=== PATIENT | male | born 1965 | race African-American/Black ===

== ENCOUNTER 2016-12-24 12:42 | Inpatient (IN) | payer MEDICAID ==
[~2016-12-24] VITALS: Ht 170.2 cm; Wt 72.4 kg
[2016-12-24 13:36] LABS: Basophils # (auto) 0 uL; Basophils % (auto) 0.5 % (0.0-2.0); DEFINITIVE VIEW TRANSMISSION; Eosinophils # (auto) 0.1 uL; Eosinophils % (auto) 1.4 % (0.0-7.0); Hematocrit 39.9 % (41.0-53.0); Hemoglobin 12.8 g/dL (13.5-17.5); Lymphocytes # (auto) 1.3 uL; Lymphocytes % (auto) 20.5 % (10.0-50.0); Mean Corpuscular Hemoglobin 26.5 pg (28.0-32.0); Mean Platelet Volume 6.6 fL (7.4-10.4); Monocytes # (auto) 0.6 uL; Neutrophils # (auto) 4.3 uL; Neutrophils % (auto) 67.6 % (37.0-80.0); Platelet Count (auto) 268 10^3/uL (140-450); Red Cell Distribution Width 17.5 % (11.6-16.0); White Blood Cell 6.4 10^3/uL (4.4-10.8)
[2016-12-24 14:00] LABS: Albumin 3.4 g/dL (3.4-5.0); Alkaline Phosphatase 79 U/L (45-117); Anion Gap 10 (5-15); Aspartate Aminotransferase 24 U/L (15-37); BUN/Creatinine Ratio 8.1; Bilirubin, Total 0.2 mg/dL (0.2-1.0); Blood Urea Nitrogen 9 mg/dL (7-18); Calcium 8.3 mg/dL (8.5-10.1); Carbon Dioxide 22 mmol/L (21-32); Chloride 106 mmol/L (98-107); GFR African American 90 mL/min; GFR Non-African American 74 mL/min; Glucose 90 mg/dL (74-106); Magnesium 2.2 mg/dL (1.6-2.6); Potassium 3.7 mmol/L (3.5-5.1); Sodium 138 mmol/L (136-145); Total Protein 7.4 g/dL (6.4-8.2)
[2016-12-24] MEDS ORDERED: SODIUM CHLORIDE 0.9% 1,000 ML IV ONE (16:03)
[2016-12-24] MEDS ORDERED: ACETAMINOPHEN 500 MG TAB PO PRN (16:15)
[2016-12-24] MEDS ORDERED: MORPHINE SULF INJ 2 MG/ML SYRINGE 1ML IV PRN ×2 (16:15)
[2016-12-24] MEDS ORDERED: LACTULOSE 20Gm/30ML SOLN PO PRN (16:15)
[2016-12-24] MEDS ORDERED: MORPHINE SULF INJ 2 MG/ML SYRINGE 1ML IV ONE (16:15)
[2016-12-24] MEDS ORDERED: LORazepam 0.5 MG TAB PO PRN (16:15)
[2016-12-24] MEDS ORDERED: ONDANSETRON HCL 4 MG/2 ML VIAL IV ONE (16:15)
[2016-12-24] MEDS ORDERED: ALBUTEROL SULF 2.5 MG/0.5ML(0.5%) NEB SOLN NEB PRN (16:15)
[2016-12-24] MEDS ORDERED: TEMAZEPAM 15 MG CAP PO PRN (16:15)
[2016-12-24] MEDS ORDERED: PROMETHAZINE HCL 25 MG/ML 1ML IV PRN (16:15)
[2016-12-24] MEDS ORDERED: NITROGLYCERIN 0.4 MG SL TAB SL PRN (16:15)
[2016-12-24] MEDS ORDERED: IOHEXOL 350 MG/ML 100ML IJ ONE (16:24)
[2016-12-24 16:58] LABS: Partial Thromboplastin Time 48.9 sec (22.64-33.71)
[2016-12-24] MEDS: SODIUM CHLORIDE 0.9% 1,000 ML IV SCH (16:58)
[2016-12-24 17:00] LABS: Prothrombin Time 26.3 sec (9.37-12.3)
[2016-12-24] MEDS ORDERED: ACETAMINOPHEN 325 MG TAB PO ONE (17:00)
[2016-12-24 17:01] LABS: INR 2.44 (0.9-1.15)
[2016-12-24] MEDS: LEVOFLOXACIN 500MG 100 ML IV SCH (17:03)
[2016-12-24 17:10] LABS: B-Type Natriuretic Peptide 11.79 pg/mL (0-100)
[2016-12-24 17:41] LABS: Temperature: 23.7 C (20.0-25.0)
[2016-12-24] MEDS: ALBUTEROL SULF 2.5 MG/0.5ML(0.5%) NEB SOLN NEB SCH (18:20)
[2016-12-24] MEDS: WARFARIN SODIUM 10 MG TAB PO ONE ×2 (19:30→20:53)
[2016-12-24 22:00] VITALS: BP 126/82
[2016-12-24] MEDS: METOPROLOL TARTRATE 25 MG TAB PO SCH (22:16)
[2016-12-24] MEDS: ATORVASTATIN 20 MG TAB PO SCH (22:16)
[2016-12-25] VITALS (7 sets, daily range): BP systolic 108–145; BP diastolic 59–103
[2016-12-25] MEDS: SODIUM CHLORIDE 0.9% 1,000 ML IV SCH ×3 (00:07→16:07)
[2016-12-25] MEDS: ALBUTEROL SULF 2.5 MG/0.5ML(0.5%) NEB SOLN NEB SCH ×4 (01:22→19:05)
[2016-12-25] MEDS ORDERED: PNEUMOCOCCAL VACC POLYS 25 MCG/0.5 ML VIAL IM ONE (05:45)
[2016-12-25] MEDS: HYDROcodone-ACET 5/325MG TAB PO PRN ×3 (06:11→22:15)
[2016-12-25 06:56] LABS: Basophils # (auto) 0 uL; Basophils % (auto) 0.6 % (0.0-2.0); DEFINITIVE VIEW TRANSMISSION; Eosinophils # (auto) 0.1 uL; Eosinophils % (auto) 1.2 % (0.0-7.0); Hemoglobin 12.2 g/dL (13.5-17.5); Lymphocytes # (auto) 1.3 uL; Lymphocytes % (auto) 19.7 % (10.0-50.0); Mean Corpuscular Hemoglobin 26.8 pg (28.0-32.0); Mean Corpuscular Hgb Conc. 32.2 g/dL (32.0-36.0); Mean Corpuscular Volume 83.3 fL (80.0-100.0); Mean Platelet Volume 6.9 fL (7.4-10.4); Monocytes % (auto) 14.2 % (0.0-12.0); Neutrophils # (auto) 4.4 uL; Neutrophils % (auto) 64.3 % (37.0-80.0); Platelet Count (auto) 251 10^3/uL (140-450); Red Cell Distribution Width 17.2 % (11.6-16.0); White Blood Cell 6.8 10^3/uL (4.4-10.8)
[2016-12-25 07:21] LABS: Anion Gap 8 (5-15); Blood Urea Nitrogen 11 mg/dL (7-18); Calcium 8.2 mg/dL (8.5-10.1); Carbon Dioxide 26 mmol/L (21-32); Chloride 106 mmol/L (98-107); Cholesterol 158 mg/dL (< 200); GFR African American 81 mL/min; GFR Non-African American 67 mL/min; Glucose 91 mg/dL (74-106); HDL Cholesterol 39 mg/dL (40-59); LDL Cholesterol 103 mg/dL (< 100); Potassium 4.1 mmol/L (3.5-5.1); Sodium 140 mmol/L (136-145); Triglycerides 110 mg/dL (< 150)
[2016-12-25 07:28] LABS: Partial Thromboplastin Time 59.5 sec (22.64-33.71)
[2016-12-25 07:35] LABS: INR 3.28 (0.9-1.15); Prothrombin Time 35.4 sec (9.37-12.3)
[2016-12-25] MEDS: METOPROLOL TARTRATE 25 MG TAB PO SCH ×2 (10:00→21:51)
[2016-12-25] MEDS: LEVOFLOXACIN 500MG 100 ML IV SCH (10:38)
[2016-12-25] MEDS ORDERED: WARFARIN SODIUM 10 MG TAB PO SCH ×2 (17:00)
[2016-12-25] MEDS: ATORVASTATIN 20 MG TAB PO SCH (21:50)
[2016-12-26] MEDS: ALBUTEROL SULF 2.5 MG/0.5ML(0.5%) NEB SOLN NEB SCH ×4 (00:15→20:22)
[2016-12-26] MEDS: SODIUM CHLORIDE 0.9% 1,000 ML IV SCH ×3 (02:07→15:33)
[2016-12-26 05:02] VITALS: BP 119/81
[2016-12-26] MEDS: HYDROcodone-ACET 5/325MG TAB PO PRN ×2 (09:03→21:17)
[2016-12-26 09:30] VITALS: BP 147/87
[2016-12-26] MEDS: METOPROLOL TARTRATE 25 MG TAB PO SCH ×2 (10:09→21:16)
[2016-12-26 10:37] LABS: Partial Thromboplastin Time 66.8 sec (22.64-33.71)
[2016-12-26 10:47] LABS: INR 4.46 (0.9-1.15); Prothrombin Time 48.2 sec (9.37-12.3)
[2016-12-26] MEDS: LEVOFLOXACIN 500MG 100 ML IV SCH (10:53)
[2016-12-26 13:30] VITALS: BP 157/98
[2016-12-26 15:26] LABS: Urine RBC None Seen /hpf (0 - 3)
[2016-12-26 15:50] LABS: Urine Bilirubin Negative (Negative); Urine Blood Negative /uL (Negative); Urine Color Yellow (Yellow); Urine Glucose Normal (Normal); Urine Ketone Negative (Negative); Urine Nitrite Negative (Negative); Urine Urobilinogen Normal (Negative); Urine pH 6.5 (5.0-8.0)
[2016-12-26 18:08] VITALS: BP 132/81
[2016-12-26] MEDS: ATORVASTATIN 20 MG TAB PO SCH (21:16)
[2016-12-26 21:58] VITALS: BP 139/83
[2016-12-27] MEDS: SODIUM CHLORIDE 0.9% 1,000 ML IV SCH (00:07)
[2016-12-27 05:20] VITALS: BP 136/78
[2016-12-27] MEDS: ALBUTEROL SULF 2.5 MG/0.5ML(0.5%) NEB SOLN NEB SCH ×2 (06:00)
[2016-12-27 06:31] LABS: Partial Thromboplastin Time 68.6 sec (22.64-33.71)
[2016-12-27 06:39] LABS: INR 3.68 (0.9-1.15); Prothrombin Time 39.7 sec (9.37-12.3)
[2016-12-27 09:10] VITALS: BP 133/77
== END 2016-12-27 10:43 | disposition home or self-care (01) | DRG 139 ==
LOC: ER 12:45 → TELE 12:46 → TELE-WESTW 19:45 → WEST WING 12-26 22:56
PROVIDERS: ADMIT Internal Medicine; ATTEND Internal Medicine
DX: J18.9 Pneumonia, unspecified organism (principal); E11.9 Type 2 diabetes mellitus without complications; E78.5 Hyperlipidemia, unspecified; Z86.711 Personal history of pulmonary embolism; Z23 Encounter for immunization; F17.210 Nicotine dependence, cigarettes, uncomplicated
CPT/HCPCS: 36415; 70450; 71020; 71275; 76705; 80048; 80053; 80061; 80307; 81001; 82550; 83735; 83880; 84443; 84484; 85025; 85379; 85610; 85652; 85730; 86141; 87040; 93005; 94640; 94761; 96374; 96375; J1956; J2405

== ENCOUNTER 2017-02-02 07:16 | Emergency (ER) | payer MEDICAID ==
[~2017-02-02] VITALS: Ht 170.2 cm; Wt 72.1 kg
[2017-02-02 07:29] VITALS: BP 151/82
== END 2017-02-02 08:31 | disposition home or self-care (01) ==
LOC: ER 07:16
DX: J02.9 Acute pharyngitis, unspecified (principal); F17.210 Nicotine dependence, cigarettes, uncomplicated

== ENCOUNTER 2018-03-26 14:19 | Observation (INO) | payer MEDICAID ==
[~2018-03-26] VITALS: Ht 172.7 cm; Wt 73.5 kg
[2018-03-26] MEDS ORDERED: IOHEXOL 300 MG/ML 100ML BOTTLE IJ ONE (16:59)
[2018-03-26] MEDS ORDERED: HYDROcodone-ACET 10/325MG TAB PO ONE (19:15)
[2018-03-26 19:59] VITALS: BP 98/75
== END 2018-03-26 21:28 | disposition home or self-care (01) | DRG 384 ==
LOC: ER 14:19 → OVERFLOW 14:20 → ER 21:28
PROVIDERS: ADMIT Emergency Medicine; ATTEND Emergency Medicine
DX: S20.212A Contusion of left front wall of thorax, initial encounter (principal); F17.210 Nicotine dependence, cigarettes, uncomplicated; V88.9XXA Person injured in other specified (collision)(noncollision) transport accidents involving nonmotor vehicle, nontraffic, initial encounter; Y93.89 Activity, other specified; Y92.89 Other specified places as the place of occurrence of the external cause; Y99.8 Other external cause status
CPT/HCPCS: 71045; 71101; 71260; 73030; 74177; 99285; G0378; Q9967

== ENCOUNTER 2019-11-18 03:33 | Emergency (ER) | payer MEDICAID ==
[~2019-11-18] VITALS: Ht 172.7 cm; Wt 68.0 kg
[2019-11-18 03:39] VITALS: BP 110/70
== END 2019-11-18 03:47 | disposition left against medical advice (07) ==
LOC: ER 03:33
DX: M79.641 Pain in right hand (principal); Z53.21 Procedure and treatment not carried out due to patient leaving prior to being seen by health care provider; W23.0XXA Caught, crushed, jammed, or pinched between moving objects, initial encounter; Y93.89 Activity, other specified; Y92.89 Other specified places as the place of occurrence of the external cause; Y99.8 Other external cause status

== ENCOUNTER 2020-05-03 17:40 | Emergency (ER) | payer MEDICAID ==
[~2020-05-03] VITALS: Ht 172.7 cm; Wt 68.0 kg
[2020-05-03 17:56] VITALS: BP 97/69
== END 2020-05-03 19:00 | disposition home or self-care (01) ==
LOC: ER 17:40
DX: S81.011A Laceration without foreign body, right knee, initial encounter (principal); M25.562 Pain in left knee; F17.210 Nicotine dependence, cigarettes, uncomplicated; W19.XXXA Unspecified fall, initial encounter; Y93.89 Activity, other specified; Y92.89 Other specified places as the place of occurrence of the external cause; Y99.8 Other external cause status
CPT/HCPCS: 12001

== ENCOUNTER 2020-12-09 12:24 | Emergency (ER) | payer MEDICAID ==
[~2020-12-09] VITALS: Ht 172.7 cm; Wt 70.3 kg
[2020-12-09 12:50] VITALS: BP 138/84
[2020-12-09 14:03] LABS: Hematocrit 41.2 % (41.0-53.0); Hemoglobin 13.5 g/dL (13.5-17.5); Mean Corpuscular Hemoglobin 27.8 pg (28.0-32.0); Mean Corpuscular Hgb Conc. 32.7 g/dL (32.0-36.0); Mean Corpuscular Volume 85.1 fL (80.0-100.0); Platelet Count (auto) 240 10^3/uL (140-450); Red Blood Cells 4.84 10^6/uL (4.5-5.90); Red Cell Distribution Width 16.4 % (11.8-14.3); White Blood Cell 5.7 10^3/uL (4.4-10.8)
[2020-12-09 14:14] LABS: Band Neutrophils % (manual) 0; Basophils % (manual) 0 (0.0-2.0); Blast Cells 0; Metamyelocytes % 0; Myelocytes % 0; Promyelocytes % 0; Reactive Lymphocytes 0
[2020-12-09 14:18] LABS: INR 2.87 (0.9-1.15)
[2020-12-09 14:20] LABS: Albumin 3.7 g/dL (3.4-5.0); Anion Gap 8 (5-15); Blood Urea Nitrogen 10 mg/dL (7-18); Calcium 8.8 mg/dL (8.5-10.1); Carbon Dioxide 23 mmol/L (21-32); Chloride 110 mmol/L (98-107); Glucose 95 mg/dL (74-106); Potassium 3.8 mmol/L (3.5-5.1); Sodium 141 mmol/L (136-145)
[2020-12-09 14:26] LABS: Alanine Aminotransferase 25 U/L (16-61); Alkaline Phosphatase 63 U/L (45-117); Aspartate Aminotransferase 23 U/L (15-37); BUN/Creatinine Ratio 9.7; Bilirubin, Total 0.4 mg/dL (0.2-1.0); GFR African American 96 mL/min; GFR Non-African American 80 mL/min; Total Protein 7.3 g/dL (6.4-8.2)
[2020-12-09 16:12] LABS: Eosinophils % (manual) 3 (0-7); Lymphocytes % (manual) 30 (10.0-50.0); Monocytes % (manual) 5 (0-12)
== END 2020-12-09 15:03 | disposition home or self-care (01) ==
LOC: ER 12:24
DX: R07.89 Other chest pain (principal); F17.210 Nicotine dependence, cigarettes, uncomplicated
CPT/HCPCS: 36415; 71045; 80053; 84484; 85007; 85027; 85610

== ENCOUNTER 2021-05-22 12:03 | Inpatient (IN) | payer MEDICAID ==
[~2021-05-22] VITALS: Ht 172.7 cm; Wt 69.9 kg
[2021-05-22] MEDS ORDERED: SODIUM CHLORIDE 0.9% 500 ML IV ONE (12:30)
[2021-05-22 13:23] LABS: Basophils # (auto) 0.1 10 ^3/uL (0-0.2); Eosinophils # (auto) 0.1 10 ^3/uL (0-0.8); Eosinophils % (auto) 1.9 % (0.0-7.0); Hematocrit 37.5 % (41.0-53.0); Hemoglobin 12.1 g/dL (13.5-17.5); Lymphocytes # (auto) 1.8 10 ^3/uL (0.4-5.4); Lymphocytes % (auto) 35.1 % (10.0-50.0); Mean Corpuscular Hemoglobin 27.3 pg (28.0-32.0); Mean Corpuscular Hgb Conc. 32.4 g/dL (32.0-36.0); Mean Corpuscular Volume 84.3 fL (80.0-100.0); Monocytes # (auto) 0.4 10 ^3/uL (0-1.3); Monocytes % (auto) 6.9 % (0.0-12.0); Neutrophils # (auto) 2.8 10 ^3/uL (1.6-8.6); Neutrophils % (auto) 55.1 % (37.0-80.0); Nucleated Red Blood Cells % 0.2 %; Red Blood Cells 4.45 10^6/uL (4.5-5.90); Red Cell Distribution Width 17.4 % (11.8-14.3); White Blood Cell 5.2 10^3/uL (4.4-10.8)
[2021-05-22 13:41] LABS: Albumin 3.1 g/dL (3.4-5.0); Anion Gap 7 (5-15); Blood Urea Nitrogen 13 mg/dL (7-18); Carbon Dioxide 22 mmol/L (21-32); Chloride 112 mmol/L (98-107); Glucose 87 mg/dL (74-106); Potassium 3.8 mmol/L (3.5-5.1); Sodium 141 mmol/L (136-145)
[2021-05-22 13:47] LABS: Alanine Aminotransferase 25 U/L (16-61); Alkaline Phosphatase 59 U/L (45-117); Aspartate Aminotransferase 23 U/L (15-37); BUN/Creatinine Ratio 13.3; Bilirubin, Total 0.2 mg/dL (0.2-1.0); GFR African American 102 mL/min; GFR Non-African American 84 mL/min; Total Protein 6.4 g/dL (6.4-8.2)
[2021-05-22 13:52] LABS: INR > 8.0 (0.9-1.15)
[2021-05-22 13:53] LABS: Partial Thromboplastin Time 70.7 sec (23.6-33.0)
[2021-05-22] MEDS ORDERED: IOHEXOL 350 MG/ML 100ML IJ ONE (14:08)
[2021-05-22] MEDS ORDERED: PHYTONADIONE(VitK) ORAL Susp 5mg/5ml(1mg/ml) PO ONE (14:15)
[2021-05-22] MEDS ORDERED: MORPHINE SULFATE INJECTION 2 MG/ML SYRG IV PRN (16:30)
[2021-05-22] MEDS ORDERED: NITROGLYCERIN 0.4 MG SL TAB SL PRN (16:30)
[2021-05-22] MEDS ORDERED: diphenhdrAMINE HCL 25 MG CAP PO ONE (16:30)
[2021-05-22 17:12] LABS: Basophils # (auto) 0.1 10 ^3/uL (0-0.2); Basophils % (auto) 1.2 % (0.0-2.0); Eosinophils # (auto) 0.1 10 ^3/uL (0-0.8); Eosinophils % (auto) 1.7 % (0.0-7.0); Hematocrit 35.6 % (41.0-53.0); Hemoglobin 11.6 g/dL (13.5-17.5); Lymphocytes # (auto) 2.5 10 ^3/uL (0.4-5.4); Lymphocytes % (auto) 43.7 % (10.0-50.0); Mean Corpuscular Hemoglobin 27.3 pg (28.0-32.0); Mean Corpuscular Hgb Conc. 32.6 g/dL (32.0-36.0); Mean Corpuscular Volume 83.9 fL (80.0-100.0); Monocytes # (auto) 0.3 10 ^3/uL (0-1.3); Monocytes % (auto) 5.8 % (0.0-12.0); Neutrophils # (auto) 2.7 10 ^3/uL (1.6-8.6); Neutrophils % (auto) 47.6 % (37.0-80.0); Nucleated Red Blood Cells % 0.2 %; Red Blood Cells 4.25 10^6/uL (4.5-5.90); Red Cell Distribution Width 17.8 % (11.8-14.3); White Blood Cell 5.7 10^3/uL (4.4-10.8)
[2021-05-22 17:31] LABS: % Iron Saturation 22.2 % (20-55)
[2021-05-22 18:00] LABS: Fibrinogen 299 mg/dL (177-375)
[2021-05-22 18:04] LABS: INR > 8.0 (0.9-1.15)
[2021-05-22 20:15] VITALS: BP 122/81
[2021-05-22 21:26] VITALS: BP 108/69
[2021-05-22] MEDS ORDERED: AMLO-496 PO (22:06)
[2021-05-23] VITALS (9 sets, daily range): BP systolic 98–122; BP diastolic 52–86
[2021-05-23] MEDS ORDERED: AMLO-496 PO (05:28)
[2021-05-23] MEDS ORDERED: PANTOPRAZOLE 40 MG/10 ML VIAL INJ IV ONE (08:30)
[2021-05-23] MEDS ORDERED: HYDROcodone-ACET 5/325MG TAB PO PRN (09:30)
[2021-05-23] MEDS ORDERED: MORPHINE SULFATE INJECTION 2 MG/ML SYRG IV PRN ×2 (09:30)
[2021-05-23] MEDS ORDERED: SUCRALFATE 1 GM/10 ML ORAL SUSP PO ONE (09:30)
[2021-05-23] MEDS ORDERED: ACETAMINOPHEN 325 MG TAB PO PRN (09:30)
[2021-05-23] MEDS ORDERED: DOCUSATE SOD 100 MG CAP PO PRN (09:30)
[2021-05-23] MEDS ORDERED: ALUM & MAG HYDROX-SIMETH LIQ(MAALOX) 30 ML PO PRN (09:30)
[2021-05-23] MEDS ORDERED: ONDANSETRON HCL 4 MG/2 ML VIAL IV PRN (09:30)
[2021-05-23] MEDS ORDERED: LORazepam 0.5 MG TAB PO PRN (09:30)
[2021-05-23] MEDS ORDERED: NITROGLYCERIN 0.4 MG SL TAB SL PRN (09:30)
[2021-05-23] MEDS: SODIUM CHLORIDE 0.9% 1,000 ML IV SCH (11:07)
[2021-05-23] MEDS: SUCRALFATE 1 GM/10 ML ORAL SUSP PO SCH ×3 (11:30→21:29)
[2021-05-23] MEDS ORDERED: SODIUM FERR GLUC 62.5MG/5ML 125 MG in SODIUM CHL 0.9% 100 ML IV SCH (12:00)
[2021-05-23] MEDS ORDERED: PHYTONADIONE (VIT K)10 MG/ML 1ML VIAL SUBCUT ONE (12:45)
[2021-05-23 13:45] LABS: Cholesterol 219 mg/dL (< 200); HDL Cholesterol 50 mg/dL (40-59); LDL Cholesterol 135 mg/dL (< 100); Triglycerides 87 mg/dL (< 150)
[2021-05-23] MEDS: PANTOPRAZOLE 40 MG/10 ML VIAL INJ IV SCH (21:27)
[2021-05-24] MEDS: SODIUM CHLORIDE 0.9% 1,000 ML IV SCH (02:18)
[2021-05-24 05:00] VITALS: BP 113/78
[2021-05-24 06:14] LABS: INR 1.28 (0.9-1.15)
[2021-05-24 09:00] VITALS: BP 139/106
[2021-05-24] MEDS: PANTOPRAZOLE 40 MG/10 ML VIAL INJ IV SCH (09:34)
[2021-05-24] MEDS ORDERED: PHYTONADIONE (VIT K)10 MG/ML 1ML VIAL SUBCUT SCH (10:00)
[2021-05-24] MEDS: SUCRALFATE 1 GM/10 ML ORAL SUSP PO SCH (11:30)
[2021-05-24 12:04] VITALS: BP 148/88
== END 2021-05-24 12:45 | disposition home or self-care (01) | DRG 661 ==
LOC: ER 12:03 → TELE 16:27 → TELE-WESTW 21:05
PROVIDERS: ADMIT Hospitalist; ATTEND Family Medicine
PROC: 30233N1 Transfusion of Nonautologous Red Blood Cells into Peripheral Vein, Percutaneous Approach (ICD-10-PCS; principal; 2021-05-22)
DX: D68.32 Hemorrhagic disorder due to extrinsic circulating anticoagulants (principal); E44.0 Moderate protein-calorie malnutrition; E83.51 Hypocalcemia; D63.8 Anemia in other chronic diseases classified elsewhere; D50.0 Iron deficiency anemia secondary to blood loss (chronic); F17.210 Nicotine dependence, cigarettes, uncomplicated; I10 Essential (primary) hypertension; K06.8 Other specified disorders of gingiva and edentulous alveolar ridge; Z20.822 Contact with and (suspected) exposure to COVID-19; T45.515A Adverse effect of anticoagulants, initial encounter; Y92.89 Other specified places as the place of occurrence of the external cause; Z79.01 Long term (current) use of anticoagulants; Z79.899 Other long term (current) drug therapy; Z80.9 Family history of malignant neoplasm, unspecified; Z86.711 Personal history of pulmonary embolism; Z91.19 Patient's noncompliance with other medical treatment and regimen; Z68.21 Body mass index [BMI] 21.0-21.9, adult; Z71.6 Tobacco abuse counseling
CPT/HCPCS: 36415; 71275; 80053; 80061; 83036; 83540; 83550; 84484; 85025; 85049; 85384; 85610; 85730; 86850; 86900; 86901; 87040; 87426; 93306; 96360; 99291; C9113; G0378; J3430